=== PATIENT | male | born 1975 | race Caucasian/White ===

== ENCOUNTER → 2016-09-22 | Outpatient (CLI) | payer OTHER ==
[2016-09-18 13:24] VITALS: BP 166/103
--- NOTE | 2016-09-22 15:23 | MRI ---
MRI right hand without contrast Indication: Pain and swelling of the index finger Comparison: None Technique: Multiplanar, multisequence MR images of the right hand were obtained without contrast. Findings: There is marked soft tissue swelling involving the distal half of the index finger, especi ally about the distal phalanx. There is diffuse osteolysis involving the majority of the distal phal anx with abnormal hyperintense T1 signal. The normal marrow signal is preserved approximately at the articular surface of the distal phalanx. The DIP joint is intact. No discrete collection is identif ied. No susceptibility artifact to suggest foreign body or gas is seen. There is a well-defined T1 hypointense, T2 hyperintense 6 mm focus within the long finger proximal phalanx abutting the cortex, without associated perilesional edema, cortical breakth rough, fracture, or soft tissue component. Mild degenerative changes are seen at the capitate-hamate articulation, and thumb CMC and MCP joints. The flexor and extensor tendons appear normal. The intrinsic muscles of the hand are unremarkable. Impression: 1. 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 No abscess, soft tissue gas, or foreign body identified. 2. Mild degenerative changes as above. 3. Benign-appearing lesion within the middle finger proximal phalanx, possibly a fibrous cortical de fect or low grade chondroid lesion. THE AVAILABILITY OF THE REPORT AND FINDINGS WERE COMMUNICATED TO Dr. Gonzales BY Dr. Salas ON 09/22 AT 320 p.m. Reported By:
== END ==
LOC: RAD 12:31
PROVIDERS: ATTEND Orthopaedic Surgery
DX: M86.8X4 Other osteomyelitis, hand (principal)
CPT/HCPCS: 73221

== ENCOUNTER → 2016-09-23 | Day surgery (SDC) | payer OTHER ==
[~2016-09-23] MED LIST: ANCEF VIAL 1 GM ONE; BACTROBAN OINT ONE; BENADRYL INJ 50 MG VIAL IVP PRN; DILAUDID INJ IVP PRN; FENTANYL INJ 100 mcg ONE; LR 1000 ML IV 1,000 ML IV ONE; NAROPIN 0.75% ONE; NS 250 ML IV 250 ML IV ONE; NS 50 ML IV + SPIKE MINIBAG* 50 ML IV ONE; NS IRRIGATION 1000 ML 1,000 ML with BACITRACIN VIAL 50,000 UNT IR ONE; PHENERGAN INJ 25 MG IVP PRN; REGLAN INJ 10 MG VIAL IVP PRN; VANCOMYCIN HCL 1 GM VIAL ONE; VANCOMYCIN HCL 500 MG VIAL ONE; XYLOCAINE-MPF 1% ONE; ZOFRAN INJ 4 MG VIAL IVP PRN
[2016-09-23 10:55] VITALS: BP 130/82
--- NOTE | 2016-09-23 11:39 | RAD ---
HISTORY: Post PICC placement Study: Single view chest Comparison: None Findings: Right-sided PICC tip terminates in the right atrium. This can be pulled back by approximately 5 cm f or more appropriate positioning. The lungs are clear without consolidation, effusion or pneumothorax . The cardiac and mediastinal contours are within normal limits. The soft tissues are unremarkable. IMPRESSION: 1. Right-sided PICC terminates in the right atrium and can be pulled back by approximately 5 cm for more appropriate positioning. 2. No acute cardiopulmonary abnormality. Reported By:
--- NOTE | 2016-09-23 13:49 | RAD ---
HISTORY: PICC line adjustment Study: Single view chest Comparison: Earlier same day Findings: Right PICC line again is seen terminating in the distal right atrium. Low lung volumes without acute abnormality. No pneumothorax. The cardiac and mediastinal contours are within normal limits. The s oft tissues are unremarkable. IMPRESSION: 1. Right-sided PICC is again seen terminating in the distal right atrium and can be pulled back by 5 cm for more appropriate positioning. Reported By:
== END | disposition home or self-care (01) | DRG 513 ==
LOC: SURG1 07:06
PROVIDERS: ATTEND Orthopaedic Surgery
PROC: 02H633Z Insertion of Infusion Device into Right Atrium, Percutaneous Approach (ICD-10-PCS; 2016-09-23)
PROC: B244ZZZ Ultrasonography of Right Heart (ICD-10-PCS; 2016-09-23)
PROC: 0JBJ0ZZ Excision of Right Hand Subcutaneous Tissue and Fascia, Open Approach (ICD-10-PCS; principal; 2016-09-23 08:00)
PROC: 0JHD3XZ Insertion of Tunneled Vascular Access Device into Right Upper Arm Subcutaneous Tissue and Fascia, Percutaneous Approach (ICD-10-PCS; 2016-09-23 08:00)
DX: M86.8X4 Other osteomyelitis, hand (principal); L03.011 Cellulitis of right finger; L02.511 Cutaneous abscess of right hand; M79.89 Other specified soft tissue disorders
CPT/HCPCS: 71010; 87070; 87075; 87186; 87205; A4222; J0690; J3010; J3370; J7120

== ENCOUNTER → 2016-10-11 | Outpatient (CLI) | payer OTHER ==
[2016-09-23 10:55] VITALS: BP 130/82
[2016-10-11 17:30] LABS: BASOPHILS # (AUTO) 0.1 X10^3/uL (0.0-0.1); EOSINOPHILS # (AUTO) 0.2 x10^3/uL (0.0-0.2)
[2016-10-11 17:39] LABS: ALANINE AMINOTRANSFERASE 129 Units/L (12-78); ALBUMIN 4.1 g/dL (3.4-5.0); ALKALINE PHOSPHATASE 61 Units/L (46-116); ASPARTATE AMINO TRANSFERASE 36 Units/L (15-37); BLOOD UREA NITROGEN 14 mg/dL (7-18); CALCIUM 8.7 mg/dL (8.5-10.1); CARBON DIOXIDE 27.5 mmol/L (21-32); CHLORIDE 103 mmol/L (98-107); CREATININE 1.27 mg/dL (0.70-1.30); GLUCOSE 97 mg/dL (65-99); SODIUM 139 mmol/L (136-145); TOTAL PROTEIN 8.1 g/dL (6.4-8.2); eGFR BLACK RACES > 60 (>60); eGFR NON BLACK RACES > 60 (>60)
[2016-10-11 17:58] LABS: BASOPHILS % (AUTO) 0.8 % (0.2-1.0); EOSINOPHILS % (AUTO) 2.1 % (0.9-2.9); HEMATOCRIT 43.8 % (42.0-54.0); HEMOGLOBIN 15.3 g/dL (13.5-18.0); LYMPHOCYTES # (AUTO) 3.2 X10^3/uL (1.3-2.9); LYMPHOCYTES % (AUTO) 35.7 % (21.0-51.0); MEAN CORPUSCULAR HEMOGLOBIN 31.5 pg (27.0-34.0); MEAN CORPUSCULAR VOLUME 90.2 fL (80.0-100.0); MEAN PLATELET VOLUME 9.5 fL (7.4-11.0); MONOCYTES # (AUTO) 0.4 x10^3/uL (0.3-0.8); MONOCYTES % (AUTO) 4.6 % (0.0-13.0); NEUTROPHILS % (AUTO) 56.8 % (42.0-75.0); PLATELET COUNT 158 X10^3/uL (150.0-450.0); RED BLOOD COUNT 4.86 X10^6/uL (4.7-6.0); RED CELL DISTRIBUTION WIDTH 14.3 % (11.6-16.5); WHITE BLOOD COUNT 8.8 X10^3/uL (3.6-10.0)
== END | disposition home or self-care (01) ==
LOC: LAB 17:09
PROVIDERS: ATTEND Orthopaedic Surgery
DX: L08.89 Other specified local infections of the skin and subcutaneous tissue (principal)
CPT/HCPCS: 36415; 80053; 85025; 86140

== ENCOUNTER → 2016-10-18 | Outpatient (CLI) | payer OTHER ==
[2016-09-23 10:55] VITALS: BP 130/82
[2016-10-18 16:31] LABS: HEMOGLOBIN 14.6 g/dL (13.5-18.0); MEAN CORPUSCULAR HEMOGLOBIN 31.3 pg (27.0-34.0); MEAN CORPUSCULAR HGB CONC 35.5 g/dL (33.0-35.0); MEAN CORPUSCULAR VOLUME 88.2 fL (80.0-100.0); MEAN PLATELET VOLUME 7.8 fL (7.4-11.0); PLATELET COUNT 142 X10^3/uL (150.0-450.0); RED BLOOD COUNT 4.65 X10^6/uL (4.7-6.0); RED CELL DISTRIBUTION WIDTH 14.1 % (11.6-16.5); WHITE BLOOD COUNT 7.6 X10^3/uL (3.6-10.0)
[2016-10-18 16:32] LABS: BASOPHILS % (AUTO) 0.6 % (0.2-1.0); EOSINOPHILS # (AUTO) 0.1 x10^3/uL (0.0-0.2); EOSINOPHILS % (AUTO) 1.3 % (0.9-2.9); LYMPHOCYTES # (AUTO) 2.6 X10^3/uL (1.3-2.9); LYMPHOCYTES % (AUTO) 34.2 % (21.0-51.0); MONOCYTES # (AUTO) 0.6 x10^3/uL (0.3-0.8); MONOCYTES % (AUTO) 7.4 % (0.0-13.0); NEUTROPHILS # (AUTO) 4.3 x10^3/uL (2.2-4.8); NEUTROPHILS % (AUTO) 56.5 % (42.0-75.0)
[2016-10-18 17:07] LABS: ERYTHROCYTE SEDIMENTATION RATE 8 MM/HOUR (0-15)
== END ==
LOC: LAB 16:11
PROVIDERS: ATTEND Orthopaedic Surgery
DX: L03.011 Cellulitis of right finger (principal)
CPT/HCPCS: 36415; 85025; 85652; 86140

== ENCOUNTER → 2016-10-25 | Outpatient (CLI) | payer OTHER ==
[2016-09-23 10:55] VITALS: BP 130/82
[2016-10-25 17:33] LABS: BASOPHILS % (AUTO) 0.5 % (0.2-1.0); EOSINOPHILS # (AUTO) 0.1 x10^3/uL (0.0-0.2); EOSINOPHILS % (AUTO) 1.4 % (0.9-2.9); HEMATOCRIT 37.6 % (42.0-54.0); HEMOGLOBIN 13.5 g/dL (13.5-18.0); LYMPHOCYTES # (AUTO) 2.6 X10^3/uL (1.3-2.9); LYMPHOCYTES % (AUTO) 34.6 % (21.0-51.0); MEAN CORPUSCULAR HEMOGLOBIN 31.7 pg (27.0-34.0); MEAN CORPUSCULAR HGB CONC 35.8 g/dL (33.0-35.0); MEAN CORPUSCULAR VOLUME 88.4 fL (80.0-100.0); MEAN PLATELET VOLUME 8.3 fL (7.4-11.0); MONOCYTES # (AUTO) 0.3 x10^3/uL (0.3-0.8); MONOCYTES % (AUTO) 4.1 % (0.0-13.0); NEUTROPHILS # (AUTO) 4.4 x10^3/uL (2.2-4.8); NEUTROPHILS % (AUTO) 59.4 % (42.0-75.0); PLATELET COUNT 148 X10^3/uL (150.0-450.0); RED BLOOD COUNT 4.25 X10^6/uL (4.7-6.0); RED CELL DISTRIBUTION WIDTH 14.3 % (11.6-16.5); WHITE BLOOD COUNT 7.4 X10^3/uL (3.6-10.0)
[2016-10-25 18:27] LABS: ERYTHROCYTE SEDIMENTATION RATE 8 MM/HOUR (0-15)
== END ==
LOC: LAB 16:54
PROVIDERS: ATTEND Orthopaedic Surgery
DX: Z01.818 Encounter for other preprocedural examination (principal); L03.011 Cellulitis of right finger
CPT/HCPCS: 36415; 85025; 85652; 86140

== ENCOUNTER → 2016-11-02 | Outpatient (CLI) | payer OTHER ==
[2016-09-23 10:55] VITALS: BP 130/82
[2016-11-02 17:57] LABS: BASOPHILS # (AUTO) 0.1 X10^3/uL (0.0-0.1); EOSINOPHILS # (AUTO) 0.1 x10^3/uL (0.0-0.2); EOSINOPHILS % (AUTO) 1.1 % (0.9-2.9); HEMATOCRIT 39.5 % (42.0-54.0); LYMPHOCYTES # (AUTO) 3.3 X10^3/uL (1.3-2.9); LYMPHOCYTES % (AUTO) 33.7 % (21.0-51.0); MEAN CORPUSCULAR HEMOGLOBIN 31.7 pg (27.0-34.0); MEAN CORPUSCULAR HGB CONC 35.3 g/dL (33.0-35.0); MEAN CORPUSCULAR VOLUME 89.6 fL (80.0-100.0); MEAN PLATELET VOLUME 8.6 fL (7.4-11.0); MONOCYTES # (AUTO) 0.7 x10^3/uL (0.3-0.8); MONOCYTES % (AUTO) 7.7 % (0.0-13.0); NEUTROPHILS # (AUTO) 5.4 x10^3/uL (2.2-4.8); NEUTROPHILS % (AUTO) 56.5 % (42.0-75.0); PLATELET COUNT 238 X10^3/uL (150.0-450.0); RED BLOOD COUNT 4.41 X10^6/uL (4.7-6.0); RED CELL DISTRIBUTION WIDTH 15.2 % (11.6-16.5); WHITE BLOOD COUNT 9.6 X10^3/uL (3.6-10.0)
[2016-11-02 18:10] LABS: ALANINE AMINOTRANSFERASE 87 Units/L (12-78); ALBUMIN 4.2 g/dL (3.4-5.0); ALKALINE PHOSPHATASE 55 Units/L (46-116); ASPARTATE AMINO TRANSFERASE 37 Units/L (15-37); BLOOD UREA NITROGEN 14 mg/dL (7-18); CALCIUM 8.7 mg/dL (8.5-10.1); CARBON DIOXIDE 27.4 mmol/L (21-32); CHLORIDE 104 mmol/L (98-107); CREATININE 1.21 mg/dL (0.70-1.30); GLUCOSE 92 mg/dL (65-99); SODIUM 141 mmol/L (136-145); TOTAL PROTEIN 7.7 g/dL (6.4-8.2); eGFR BLACK RACES > 60 (>60); eGFR NON BLACK RACES > 60 (>60)
[2016-11-02 19:42] LABS: ERYTHROCYTE SEDIMENTATION RATE 5 MM/HOUR (0-15)
== END ==
LOC: LAB 17:32
PROVIDERS: ATTEND Orthopaedic Surgery
DX: Z01.818 Encounter for other preprocedural examination (principal); L03.011 Cellulitis of right finger
CPT/HCPCS: 36415; 80053; 85025; 85652; 86140

== ENCOUNTER → 2016-11-08 | Outpatient (CLI) | payer OTHER ==
[2016-09-23 10:55] VITALS: BP 130/82
[2016-11-08 17:09] LABS: BASOPHILS % (AUTO) 0.4 % (0.2-1.0); EOSINOPHILS # (AUTO) 0.1 x10^3/uL (0.0-0.2); EOSINOPHILS % (AUTO) 1.3 % (0.9-2.9); HEMATOCRIT 40.3 % (42.0-54.0); HEMOGLOBIN 13.9 g/dL (13.5-18.0); LYMPHOCYTES # (AUTO) 2.2 X10^3/uL (1.3-2.9); LYMPHOCYTES % (AUTO) 26.5 % (21.0-51.0); MEAN CORPUSCULAR HEMOGLOBIN 31.8 pg (27.0-34.0); MEAN CORPUSCULAR HGB CONC 34.5 g/dL (33.0-35.0); MEAN CORPUSCULAR VOLUME 92.1 fL (80.0-100.0); MEAN PLATELET VOLUME 8.5 fL (7.4-11.0); MONOCYTES # (AUTO) 0.3 x10^3/uL (0.3-0.8); MONOCYTES % (AUTO) 3.8 % (0.0-13.0); NEUTROPHILS # (AUTO) 5.7 x10^3/uL (2.2-4.8); PLATELET COUNT 223 X10^3/uL (150.0-450.0); RED BLOOD COUNT 4.38 X10^6/uL (4.7-6.0); RED CELL DISTRIBUTION WIDTH 16.3 % (11.6-16.5); WHITE BLOOD COUNT 8.4 X10^3/uL (3.6-10.0)
[2016-11-08 17:58] LABS: ERYTHROCYTE SEDIMENTATION RATE 5 MM/HOUR (0-15)
== END ==
LOC: LAB 16:43
PROVIDERS: ATTEND Orthopaedic Surgery
DX: L03.011 Cellulitis of right finger (principal)
CPT/HCPCS: 36415; 85025; 85652; 86140